=== PATIENT | male | born 1960 ===

== ENCOUNTER 2017-07-18 20:40 | Emergency (ER) | payer OTHER ==
--- NOTE | 2017-07-18 21:31 | RAD ---
HISTORY: Left middle finger trauma COMPARISONS: None VIEWS: 3, Frontal, lateral, and oblique views of the third digit of the left hand FINDINGS: BONE DENSITY: Normal. BONES: There is no displaced fracture. JOINTS: There is no arthropathy. ALIGNMENT: There is no dislocation. SOFT TISSUES: Unremarkable. OTHER FINDINGS: None. IMPRESSION: NO ACUTE OSSEOUS INJURY. IF SYMPTOMS PERSIST, RECOMMEND REPEAT IMAGING.
[2017-07-18 21:34] VITALS: BP 132/89
[2017-07-18] MEDS ORDERED: HYDROcodone/ACETAMIN 5-325 MG* 1 TAB PO ONE (21:51)
[2017-07-18] MEDS ORDERED: Clindamycin CAP* 150 MG PO ONE (21:51)
--- NOTE | 2017-07-18 21:52 | UC ---
Hand/Wrist HPI - HPI Summary HPI Summary: pain and swelling around nail left middle finger - History Of Current Complaint Chief Complaint: UCUpperExtremity Stated Complaint: LEFT MIDDLE FINGER INJURY Time Seen by Provider: 07/18/17 21:38 Hx Obtained From: Patient ?: No Onset/Duration: Sudden Onset Pain Intensity: 6 Pain Scale Used: 0-10 Numeric Character Of Pain: Aching, Throbbing Aggravating Factor(s): Movement Alleviating Factor(s): Nothing Associated Signs And Symptoms: Positive: Negative Related History: Dominant Hand Right - Allergies/Home Medications Allergies/Adverse Reactions: Allergies Allergy/AdvReac Type Severity Reaction Status Date / Time Penicillins Allergy Unknown Verified 07/18/17 21:35 Reaction Details Home Medications: Home Medications Gabapentin CAP(*) [Neurontin 300 CAP(*)] 300 mg PO 07/18/17 [History] Ibuprofen TAB* [Advil TAB*] 400 mg PO ONCE PRN 07/18/17 [History Confirmed 07/18] Propranolol HCl [Propranolol HCl ER] 60 mg PO DAILY 07/18/17 [History Confirmed 07/18/17] PMH/Surg Hx/FS Hx/Imm Hx Previously Healthy: No Cardiovascular History: Hypertension - Surgical History Surgical History: Yes Surgery Procedure, Year, and Place: hernia; right knee reconstruction - Family History Known Family History: Positive: None - Social History Occupation: Employed Full-time Lives: With Family Alcohol Use: None Substance Use Type: None Smoking Status (MU): Former Smoker When Did the Patient Quit Smoking/Using Tobacco: 6 yrs ago - Immunization History Most Recent Tetanus Shot: 08/30/14 Review of Systems Constitutional: Negative Skin: Other - pain swelling and tenderness left 3rd fingernail Eyes: Negative ENT: Negative Respiratory: Negative Cardiovascular: Negative Gastrointestinal: Negative Genitourinary: Negative Motor: Negative Neurovascular: Negative Musculoskeletal: Negative Neurological: Negative Psychological: Negative Is Patient Immunocompromised?: No All Other Systems Reviewed And Are Negative: Yes Physical Exam Triage Information Reviewed: Yes Appearance: Well-Appearing, No Pain Distress, Well-Nourished Vital Signs: Initial Vital Signs Temp 97.8 F 07/18/17 21:30 Pulse 64 07/18/17 21:30 Resp 16 07/18/17 21:30 BP 132/89 07/18/17 21:30 Pulse Ox 96 05/29/18 21:30 Vital Signs Reviewed: Yes Eye Exam: Normal Eyes: Positive: Conjunctiva Clear ENT Exam: Normal ENT: Positive: Normal ENT inspection, Hearing grossly normal. Negative: TMs normal, Tonsillar swelling, Tonsillar exudate, Trismus, Muffled voice, Hoarse voice, Dental tenderness, Sinus tenderness, Uvula midline Dental Exam: Normal Neck exam: Normal Neck: Positive: Supple, Nontender Respiratory Exam: Normal Respiratory: Positive: Chest non-tender, No respiratory distress, No accessory muscle use Cardiovascular Exam: Normal Cardiovascular: Positive: RRR, Pulses Normal, Brisk Capillary Refill Musculoskeletal Exam: Other Musculoskeletal: Positive: Strength Intact, ROM Intact, Edema @ - distal left 3rd finger around nail Neurological Exam: Normal Neurological: Positive: Alert, Muscle Tone Normal Psychological Exam: Normal Skin Exam: Normal Hand/Wrist Course/Dx - Course Course Of Treatment: warm soaks, clindamycin, tyleniol/ibuprofen for pain follow with pcp prn - Differential Dx/Diagnosis Provider Diagnoses: paronychia left 3rd finger Discharge - Sign-Out/Discharge Documenting (check all that apply): Discharge/Admit/Transfer - Discharge Plan Condition: Stable Disposition: HOME Prescriptions: Clindamycin Cap(NF) [Clindamycin Cap 300 mg Cap(NF)] 300 mg PO Q6H #27 cap Levofloxacin TAB* [Levaquin TAB*] 500 mg PO DAILY #5 tab Patient Education Materials: Ibuprofen (By mouth), Wound Infection (ED), Warm Compress or Soak (ED) Referrals: Tripp Pitts MD [Primary Care Provider] - If Needed - Billing Disposition and Condition Condition: STABLE Disposition: Home
--- NOTE | 2017-07-20 16:52 | UC ---
- Progress Note Progress Note: Wound culture with prelim group B strep --pt on Cl[facility]. Await final. No change Discharge - Sign-Out/Discharge Documenting (check all that apply): Post-Discharge Follow Up - Discharge Plan Condition: Stable Disposition: HOME Prescriptions: Clindamycin Cap(NF) [Clindamycin Cap 300 mg Cap(NF)] 300 mg PO Q6H #27 cap Patient Education Materials: Ibuprofen (By mouth), Wound Infection (ED), Warm Compress or Soak (ED) Referrals: Tripp Pitts MD [Primary Care Provider] - If Needed - Billing Disposition and Condition Condition: STABLE Disposition: HOME
--- NOTE | 2017-07-21 15:24 | PN ---
Progress Note - Progress Note Date of Service: 07/19/16 Note: Group B strep from wound Patient placed and clindamycin prior to discharge Clindamycin as resistant organism Patient will be placed on Levaquin 1 tab daily 5 days
== END 2017-07-18 22:21 | disposition home or self-care (01) ==
LOC: UCEAST 20:40
DX: S69.92XA Unspecified injury of left wrist, hand and finger(s), initial encounter (principal); B95.1 Streptococcus, group B, as the cause of diseases classified elsewhere; X58.XXXA Exposure to other specified factors, initial encounter; Y92.9 Unspecified place or not applicable; Z88.0 Allergy status to penicillin; Z87.891 Personal history of nicotine dependence
CPT/HCPCS: 73140; 87070; 87077; 87186; 87205; 87640; 87641; 99212; A9270-GY; G0463